=== PATIENT | male | born 1995 | race African-American/Black ===

== ENCOUNTER 2018-07-27 10:49 | Emergency (ER) | payer SELFPAY ==
[~2018-07-27] VITALS: Ht 193 cm; Wt 100.0 kg
[2018-07-27 10:52] VITALS: BP 140/66; TEMP 97.3
[2018-07-27 12:15] VITALS: PULSE 84
== END 2018-07-27 12:16 | disposition home or self-care (01) ==
LOC: COL.ER 10:49
DX: R06.02 Shortness of breath (principal)